=== PATIENT | female | born 1990 | race Caucasian/White ===

== ENCOUNTER 2017-05-30 10:03 | Emergency (ER) | payer OTHER ==
[~2017-05-30] VITALS: Ht 172.7 cm; Wt 142.3 kg
[~2017-05-30 10:03] MED LIST: ADVAIR HFA120 INHALA IH; FLEXERIL10 MG PO; INDOCIN25 MG PO; LIDODERM 5% P1 PATCH TD; MOTRIN800 MG PO; NAPROSYN500 MG PO; NEURONTIN300 MG PO; OXYCODONE HCL10 MG PO; PERCOCET 5/31 TABLET PO; PHENERGAN1.25 MG/ML PO; PREDNISONE10 M1 PO; PREDNISONE10 MG PO; PREDNISONE20 MG PO; PROAIR HFA8.5 GM IH; PROAIR RESPICL90 MCG IH; TESSALON PERLE100 MG PO; ULTRACET1 TABLET PO; VALIUM5 MG PO; ZANTAC150 MG PO; ZITHROMAX Z-PA250 MG PO
[2017-05-30] MEDS ORDERED: ULTRAM50 MG PO (12:35)
[2017-05-30 12:49] VITALS: BP 131/86
== END 2017-05-30 12:50 | disposition home or self-care (01) ==
LOC: EME 10:03
DX: S93.402A Sprain of unspecified ligament of left ankle, initial encounter (principal); X58.XXXA Exposure to other specified factors, initial encounter; F17.200 Nicotine dependence, unspecified, uncomplicated
CPT/HCPCS: 73610; 99281; 99283

== ENCOUNTER 2018-03-22 01:35 | Emergency (ER) | payer OTHER ==
[~2018-03-22] VITALS: Ht 170.2 cm; Wt 132.0 kg
[~2018-03-22 01:35] MED LIST changes: +ULTRAM50 MG PO
[2018-03-22 03:12] LABS: BASOPHIL (%) 0.2 % (0-1); EOSINOPHIL (%) 0.6 % (0-5); EOSINOPHIL COUNT 0.1 K/uL (0-0.3); HEMATOCRIT 40.4 % (36.0-46.0); HEMOGLOBIN 13.4 G/DL (11.9-15.5); IMMATURE GRANULOCYTE (%) 0.5 % (0.0-0.7); LYMPHOCYTE (%) 12.2 % (15-42); LYMPHOCYTE COUNT 1.8 K/uL (1.0-2.8); MCH 23.6 PG (29.0-34.0); MCHC 33.2 G/DL (30.0-36.0); MCV 71.1 FL (83-99); MONOCYTE (%) 5.7 % (3-12); MONOCYTE COUNT 0.8 K/uL (0-0.8); NEUTROPHIL (%) 80.8 % (45-76); NEUTROPHIL COUNT 11.6 K/uL (1.8-6.4); PLATELET COUNT 335 K/uL (156-360); RBC DIS.WIDTH-CV 15.4 % (11.8-14.6); RBC DIS.WIDTH-SD 38.2 % (39-53); RED BLOOD COUNT 5.68 M/uL (3.80-5.20); WHITE BLOOD COUNT 14.4 K/uL (4.1-10.2)
[2018-03-22 03:18] LABS: ALBUMIN 3.3 g/dL (3.2-4.8); CHLORIDE 103 mEq/L (99-109); MAGNESIUM 2.1 mg/dL (1.3-2.7); POTASSIUM 4.2 mEq/L (3.7-5.4); SODIUM 134 mEq/L (136-147)
[2018-03-22 03:20] LABS: GLUCOSE 122 mg/dL (70-99); TOTAL PROTEIN 7.2 g/dL (6.4-8.3)
[2018-03-22 03:22] LABS: TOTAL BILIRUBIN 1.5 mg/dL (0.0-1.0)
[2018-03-22 03:23] LABS: ALKALINE PHOSPHATASE 106 IU/L (3-129)
[2018-03-22 03:24] LABS: CREATININE 0.7 mg/dL (0.6-1.3); GFR ESTIMATE (CALCULATED) > 59 mL/min/
[2018-03-22 03:25] LABS: AST (GOT) 13 IU/L (2-34); UREA NITROGEN (BUN) 7 mg/dL (9-23)
[2018-03-22 03:27] LABS: ALT (GPT) 21 IU/L (3-49)
[2018-03-22 03:30] LABS: LIPASE < 1.0 U/L (1.0-51.0)
[2018-03-22 03:33] LABS: QUANTITATIVE HCG < 4.0 MIU/ML
[2018-03-22 03:39] LABS: APPEARANCE CLOUDY ((CLEAR)); BILIRUBIN SMALL; BLOOD SMALL; COLOR AMBER ((YELLOW)); GLUCOSE (STRIP) NEGATIVE; KETONES 5; LEUKOCYTES NEGATIVE; NITRITE NEGATIVE; PROTEIN (STRIP) 30; SPECIFIC GRAVITY 1.028 (1.000-1.030)
[2018-03-22 03:42] LABS: BACTERIA 2+ /HPF; EPITHELIAL CELLS 2+ /HPF; MUCUS 3+ /LPF; RED BLOOD CELLS 15-20 /HPF (0-5); UCUL ADDED? YES; WHITE BLOOD CELLS 0-5 /HPF (0-5)
[2018-03-22] MEDS ORDERED: ULTRAM50 MG PO (09:27)
[2018-03-22] MEDS ORDERED: PROMETHAZINE HC25 M1 PO ×2 (09:27→09:44)
[2018-03-22] MEDS ORDERED: BENTYL20 MG PO (09:39)
[2018-03-22 09:55] VITALS: BP 159/68
== END 2018-03-22 09:56 | disposition home or self-care (01) ==
LOC: EME 01:35
PROVIDERS: Emergency Medicine
DX: K52.9 Noninfective gastroenteritis and colitis, unspecified (principal); K21.9 Gastro-esophageal reflux disease without esophagitis; J45.909 Unspecified asthma, uncomplicated; F17.200 Nicotine dependence, unspecified, uncomplicated; Z88.6 Allergy status to analgesic agent; Z88.5 Allergy status to narcotic agent; Z88.1 Allergy status to other antibiotic agents; Z88.8 Allergy status to other drugs, medicaments and biological substances
CPT/HCPCS: 74176; 80053; 81003; 83690; 83735; 84702; 85025; 87086; 99281; 99285; J1630; J2270; J2765; J7040; J7050

== ENCOUNTER 2018-03-30 20:35 | Emergency (ER) | payer OTHER ==
[~2018-03-30] VITALS: Ht 172.7 cm; Wt 126.8 kg
[~2018-03-30 20:35] MED LIST changes: +BENTYL20 MG PO; +PROMETHAZINE HC25 M1 PO
[2018-03-30 20:41] VITALS: BP 143/101
[2018-03-30] MEDS ORDERED: NORCO 5/3251 TABLET PO (22:44)
== END 2018-03-30 23:46 | disposition home or self-care (01) ==
LOC: EME 20:35
DX: S93.401A Sprain of unspecified ligament of right ankle, initial encounter (principal); W18.40XA Slipping, tripping and stumbling without falling, unspecified, initial encounter; J45.909 Unspecified asthma, uncomplicated; K21.9 Gastro-esophageal reflux disease without esophagitis; F17.200 Nicotine dependence, unspecified, uncomplicated; Z88.6 Allergy status to analgesic agent; Z88.5 Allergy status to narcotic agent; Z88.1 Allergy status to other antibiotic agents; Z88.8 Allergy status to other drugs, medicaments and biological substances
CPT/HCPCS: 73610; 99281; 99284